=== PATIENT | male | born 1940 | race Caucasian/White ===

== ENCOUNTER 2018-11-30 12:59 | Inpatient (IN) ==
[2018-11-30] MEDS ORDERED: Acetaminophen 325 MG TABLET PO PRN (16:16)
[2018-11-30] MEDS ORDERED: Naloxone 0.4 MG/ML INJ IVP PRN (16:16)
[2018-11-30] MEDS ORDERED: Ipratropium/Albuterol Neb 3 ML IH PRN (16:24)
[2018-11-30] MEDS ORDERED: *HR* Dextrose 50 % in Water (Syg) 50 ML SYRINGE IVP PRN (16:26)
[2018-11-30] MEDS ORDERED: Dextrose Gel 15 GM/37.5 ML TUBE PO PRN ×2 (16:26)
[2018-11-30] MEDS ORDERED: D5% in Water 1,000 ML IVC PRN (16:26)
--- NOTE | 2018-11-30 16:35 | Internal Med History&Physical ---
Date of Encounter: 11/30/18 Time of Encounter: 15:45 Internal Medicine - H&P: HPI Chief complaint: Shortness of breath Admitted From: Home Plans for Post Hospital Care: Home History of present illness: Mr. Dunbar is a 78 year old male presented to [facility] the emergency room for worsening shortness of breath. Past medical history is significant for COPD, diabetes on diet control only, hypertension, chronic constipation due to anal stenosis. Patient has runny nose for several days. Since 2 days ago, he started to feel shortness of breath and leg swelling. Patient denies cough, sore throat, fever, chills. Since this morning, patient feels shortness of breath getting worse, with exertional intolerance. Patient has to stop 2-3 times even when he goes to bathroom, to catch his breath. Patient denies chest pain, nausea, vomiting, or diaphoresis. In the emergency room, chest x-ray shows pulmonary vascular congestion. Patient has elevated BNP over 300. CTA has been done, negative for PE but suggested pulmonary edema. Patient also was found A. fib with a heart rate 75. Patient has no history of A. fib previously. Patient was treated with Lasix IV, DuoNeb, IV steroid. He was given Lovenox 70mg once for A. fib. Patient was transferred to our hospital for further management. Past Med Surg Social Fam HX - Past Medical History Medical history: asthma, cancer, COPD, diabetes, GERD, hyperlipidemia, hypertension, other Additional medical history: melanoma Psychiatric history: no psych history - Past Surgical History Surgical History: other Additional surgical history: Neck - Social History Smoking Status: Former smoker Smokeless Tobacco Status: No Alcohol use: none Drug use: none - Family History Mother History Unknown: Yes Internal Medicine - H&P: Meds Albuterol Sulfate [Albuterol Inhaler] 2 puff IH Q4H 08/30/15 [History] Gabapentin [Neurontin] 300 mg PO TID 08/30/15 [History] Ipratropium [Atrovent Inhaler] 2 puff IH QID 08/30/15 [History] Metoprolol [Lopressor] 50 mg PO DAILY 08/30/15 [History] Polyethylene Glycol 3350 [MiraLAX] 17 gm PO DAILY 08/30/15 [History] Saline Nasal [place] [[place] Nasal [place]] 44 spray NS HS 08/30/15 [History] Simvastatin [Zocor] 40 mg PO HS 08/30/15 [History] Aspirin [Lo-Dose Aspirin EC] 81 mg PO DAILY 11/30/18 [History] Fluticasone Propionate [Flovent Hfa] 1 puff IH BID 11/30/18 [History] Losartan Potassium 25 mg PO DAILY 11/30/18 [History] Mag Hydrox/Al Hydrox/Simeth [Maalox] 15 ml PO Q6HR PRN 11/30/18 [History] Omeprazole [PriLOSEC] 40 mg PO DAILY 11/30/18 [History] Allergy/AdvReac Type Severity Reaction Status Date / Time Amoxicillin AdvReac Headache Verified 11/30/18 16:04 lisinopril AdvReac See Verified 11/30/18 16:04 Comments All Systems PM: A 10-system review of systems was performed and is negative for pertinent findings except as documented above in the HPI. - Constitutional Vitals: Temp Pulse Resp BP Pulse Ox 97.9 F 79 18 163/80 94 11/30/18 16:00 11/30/18 16:00 11/30/18 16:00 11/30/18 16:00 11/30/18 16:00 Exam: Pt is AAO x 3, in NAD, pleasant HEENT: NC/AT, PERRL Neck: Supple, no JVD, no LAD Lungs: CTA b/l, trace wheezing on left side Heart: S1S2, irregularly irregular Abd: Soft, nontender, BS present Ext: ROM wnl, mild pitting pedal edema bilaterally Neuro: No focal deficit - Assessment and Plan (1) Diabetes mellitus Current Visit: Yes Status: Acute Assessment and plan: Patient has diabetes on diet control only. Said hemoglobin A1c 6.0. However, patient was placed on steroid, will place patient on sliding scale insulin coverage when he is in hospital. 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 Diabetes mellitus complication status: without complication Qualified Code(s): E11.9 - Type 2 diabetes mellitus without complications (2) Hypertension Current Visit: Yes Status: Acute Assessment and plan: Continue home medication losartan and metoprolol Qualifiers: Hypertension type: essential hypertension Qualified Code(s): I10 - Essential (primary) hypertension (3) DVT prophylaxis Current Visit: Yes Status: Acute Assessment and plan: Patient is on therapeutic dose of Lovenox (4) Acute exacerbation of chronic obstructive airways disease Current Visit: No Status: Acute Assessment and plan: Patient has some runny nose and worsening shortness of breath. History of COPD. Consider COPD exacerbation. Patient has good air movement and only trace wheezing when I saw him. - Respiratory virus panel - By mouth prednisone, DuoNeb scheduled and when necessary - Continue supportive treatment with oxygen, continue pulse oximetry monitoring (5) Atrial fibrillation with normal ventricular rate Current Visit: No Status: Acute Assessment and plan: New onset A. fib. Heart rate is controlled. - Place pt on continuous cardiac monitoring - Echo, TSH, magnesium - Lovenox 70mg sc bid for anticoagulations at this point - Consult cardiology for further management (6) Congestive heart failure Current Visit: No Status: Acute Assessment and plan: Patient has bilateral leg swelling, increased shortness of breath and exertional intolerance, elevated BNP, chest x-ray and CT shows pulmonary edema. Consider CHF. Patient denies history of CHF. - Place patient on fluid restriction diet - Strict I and no - Lasix IV 40 mg daily. One dose has been given by ER today. - Echocardiogram - Cardiology consult. Qualifiers: Heart failure type: unspecified Heart failure chronicity: acute Qualified Code(s): I50.9 - Heart failure, unspecified - Time Spent With Patient Total time spent is greater than 50% in coordination of care (as documented) at patient's floor/unit and/or counseling patient: 40 minutes Greater than 35 minutes
[2018-11-30] MEDS: Insulin LISPRO 300 UNITS/3 ML VIAL SQ SCH ×2 (18:28→20:58)
[2018-11-30 20:13] LABS: Adenovirus Not Detected (Not Detect); Bordetella Pertussis Not Detected (Not Detect); Chlamydophila pneumoniae Not Detected (Not Detect); Coronavirus 229E Not Detected (Not Detect); Coronavirus HKU1 Not Detected (Not Detect); Coronavirus NL63 Not Detected (Not Detect); Coronavirus OC43 Not Detected (Not Detect); Human Metapneumovirus Not Detected (Not Detect); Human Rhinovirus/Enterovirus Not Detected (Not Detect); Influenza A Subtype 2009 H1 Not Detected (Not Detect); Influenza A Untypeable Not Detected (Not Detect); Influenza B Not Detected (Not Detect); Mycoplasma pneumoniae Not Detected (Not Detect); Parainfluenza Virus 1 Not Detected (Not Detect); Parainfluenza Virus 2 Not Detected (Not Detect); Parainfluenza Virus 3 Not Detected (Not Detect); Parainfluenza Virus 4 Not Detected (Not Detect); Respiratory Syncytial Virus Not Detected (Not Detect)
[2018-11-30] MEDS: Saline Nasal Spray 44 ML BOTTLE NS SCH (20:51)
[2018-11-30] MEDS: Gabapentin 300 MG CAPSULE PO SCH (20:53)
[2018-11-30] MEDS: MOMETASONE FUROATE 100 mcg Inhaler IH SCH (21:41)
[2018-11-30] MEDS: Ipratropium/Albuterol Neb 3 ML IH SCH (21:41)
[2018-12-01 02:42] LABS: Hematocrit 36.5 % (37.5-50.1); Hemoglobin 11.8 g/dL (12.9-16.9); Immature Granulocytes % 0.5 % (0-4); Lymphocytes # 0.4 K/mcL (0.6-4.6); Lymphocytes % 8.7 %; Mean Corpuscular HGB Conc 32.3 g/dL (31.6-35.5); Mean Corpuscular Hemoglobin 28.6 pg (28.0-33.3); Mean Corpuscular Volume 88.6 fL (83.0-100.0); Mean Platelet Volume 10.5 fL (9.4-12.4); Monocytes # 0.1 K/mcL (0.0-1.3); Monocytes % 3.2 %; Neutrophils # 3.6 K/mcL (1.6-8.9); Platelet Count 125 K/mcL (140-400); Red Blood Count 4.12 M/mcL (4.19-5.50); Red Cell Distribution Width 14.5 % (11.5-14.5); Segmented Neutrophils % 87.6 %
[2018-12-01 02:57] LABS: BUN/Creatinine Ratio 19 (6-26); Blood Urea Nitrogen 20 mg/dL (8-23); Calcium 9.2 mg/dL (8.6-10.3); Carbon Dioxide 27 mEq/L (23-29); Chloride 101 mEq/L (98-107); Glucose 143 mg/dL (70-105); Magnesium 2.3 mg/dL (1.6-2.6); Osmolality,Calculated 283 (280-300); Potassium 4.3 mEq/L (3.5-5.1); Sodium 134 mEq/L (136-145); eGFR For Non-African Americans > 60 (> 60)
[2018-12-01] MEDS: Ipratropium/Albuterol Neb 3 ML IH SCH ×4 (03:40→21:39)
[2018-12-01] MEDS ORDERED: *HR* Enoxaparin 80 MG/0.8 ML SYRINGE SQ SCH (06:00)
[2018-12-01] MEDS: Aspirin Enteric Coated 81 MG Tablet PO SCH (10:11)
[2018-12-01] MEDS: Gabapentin 300 MG CAPSULE PO SCH ×3 (10:11→20:59)
[2018-12-01] MEDS: Furosemide 40 MG/4 ML VIAL IVP SCH (10:11)
[2018-12-01] MEDS: predniSONE 20 MG TABLET PO SCH (10:11)
[2018-12-01] MEDS: Insulin LISPRO 300 UNITS/3 ML VIAL SQ SCH ×4 (10:12→20:50)
[2018-12-01] MEDS: MOMETASONE FUROATE 100 mcg Inhaler IH SCH ×2 (10:27→21:39)
--- NOTE | 2018-12-01 10:31 | Internal Med Progress Note ---
Hospitalist Progress Note - Encounter Date of Encounter: 12/01/18 Time of Encounter: 10:29 - Subjective Interval History: Pt seen and examined in the room. reported improved sob and leg swelling. No chest pain, wheezing , cough, or palpitation. - Exam Vitals: Temp Pulse Resp BP Pulse Ox 97.5 F L 78 16 122/76 65 12/01/18 02:31 12/01/18 02:31 12/01/18 03:40 12/01/18 02:31 12/01/18 03:40 Exam: Pt is AAO x 3, in NAD, pleasant HEENT: NC/AT, PERRL Neck: Supple, no JVD, no LAD Lungs: CTA b/l, trace wheezing on left side Heart: S1S2, irregularly irregular Abd: Soft, nontender, BS present Ext: ROM wnl, mild pitting trace pedal edema bilaterally Neuro: No focal deficit - Assessment and Plan (1) Congestive heart failure Current Visit: No Status: Acute Assessment and Plan: 11/30 Patient has bilateral leg swelling, increased shortness of breath and exertional intolerance, elevated BNP, chest x-ray and CT shows pulmonary edema. Consider CHF. Patient denies history of CHF. - Place patient on fluid restriction diet - Strict I and no - Lasix IV 40 mg daily. One dose has been given by ER today. - Echocardiogram - Cardiology consult. 12/01 ECHO showed normal EF, indeterminate diastolic function, mod , MR, TR, and Pulm HTN, bi-atrial enlargement. New onset of afib, may contribute to newly developed CHF. BP controlled with ARB and BB. Volume status improved with IV lasix. Cardiology following. (2) Acute exacerbation of chronic obstructive airways disease Current Visit: Yes Status: Acute Assessment and Plan: 11/30 Patient has some runny nose and worsening shortness of breath. History of COPD. Consider COPD exacerbation. Patient has good air movement and only trace wheezing when I saw him. - Respiratory virus panel - By mouth prednisone, DuoNeb scheduled and when necessary - Continue supportive treatment with oxygen, continue pulse oximetry monitoring. 12/01 Stable, continue current treatment with oral steroid and bronchodilator. (3) Atrial fibrillation with normal ventricular rate Current Visit: Yes Status: Acute Assessment and Plan: 11/30 New onset A. fib. Heart rate is controlled. - Place pt on continuous cardiac monitoring - Echo, TSH, magnesium - Lovenox 70mg sc bid for anticoagulations at this point - Consult cardiology for further management. 12/01 Normal TSH and electrolyte. mod , MR and TR. CHADS score 5, AC indicated, currently on Lovenox, will start on AC. Cardiology following. (4) Diabetes mellitus Current Visit: Yes Status: Acute Assessment and Plan: Patient has diabetes on diet control only. Said hemoglobin A1c 6.0. However, patient was placed on steroid, will place patient on sliding scale insulin coverage when he is in hospital. Keep diabetic diet (5) Hypertension Current Visit: Yes Status: Acute Assessment and Plan: Continue home medication losartan and metoprolol (6) DVT prophylaxis Current Visit: Yes Status: Acute Assessment and Plan: Patient is on therapeutic dose of Lovenox - Time Spent with Patient Total time spent is greater than 50% in coordination of care (as documented) at patient's floor/unit and/or counseling patient: Greater than 35 minutes Plan of Care Discussed with: patient Internal Medicine: Result - Labs CBC & Chem 7: 12/01/18 01:55 12/01/18 01:55 Labs: Short CBC 12/01/18 Range/Units 01:55 WBC 4.1 L (4.3-11.1) K/mcL Hgb 11.8 L (12.9-16.9) g/dL Hct 36.5 L (37.5-50.1) % Plt Count 125 L (140-400) K/mcL Neutrophils # 3.6 (1.6-8.9) K/mcL BMP 12/01/18 01:55 Sodium 134 L Potassium 4.3 Chloride 101 Carbon Dioxide 27 BUN 20 Creatinine 1.07 Glucose 143 H Calcium 9.2 Cardiac Enzymes 11/30/18 12/01/18 Range/Units 19:31 01:55 Troponin I < 0.03 < 0.03 (< 0.04) ng/mL - Impressions Impressions Echocardiogram 12/01/18 16:22 Impressions: LVEF 60%. Indeterminate diastolic function. Right ventricle is mildly dilated with normal systolic function. Bi-atrial enlargement. Moderately sclerotic aortic valve leaflets. Moderate mitral regurgitation. Moderate tricuspid regurgitation. Moderate pulmonary hypertension. Left Ventricular Wall Motion: Rest Echo Findings All wall segments showed normal motion. Findings: Study Quality * Technically adequate exam. ECG Findings * Atrial fibrillation. Left Ventricle * LVEF 60%. * Normal LV chamber size, wall thickness and function. * Indeterminate diastolic function. Right Ventricle * Right ventricle is mildly dilated with normal systolic function. Left Atrium * Moderately dilated left atrium. Right Atrium * Moderately dilated right atrium. Aortic Valve * Trileaflet aortic valve. * Moderately sclerotic aortic valve leaflets. * No aortic stenosis. * Trace aortic regurgitation. Mitral Valve * Mildly thickened mitral valve leaflets. * No mitral stenosis. * Moderate mitral regurgitation. Tricuspid Valve * Normal tricuspid valve structure. * Moderate tricuspid regurgitation. * Estimated RA pressure is 20 mmHg. * Estimated RVSP is 58 mmHg. * Moderate pulmonary hypertension. Pulmonic Valve * Pulmonic valve is not well visualized. * No pulmonic stenosis. * No pulmonic regurgitation. Pulmonary Artery * Pulmonary artery not well visualized. Aorta * Normally sized aortic root. Pericardium * There is no pericardial effusion present. Interatrial Septum * No evidence of PFO by color Doppler. IVC * The IVC is dilated. * < 50% respiratory change. Consult Discharge Plan - Plan Referrals: Rebekah Shah MD [Primary Care Provider] - 12/05/18 1:30 pm (Appointment has been requested.) (1) Congestive heart failure Qualifiers: Heart failure type: diastolic Heart failure chronicity: acute Qualified Code(s): I50.31 - Acute diastolic (congestive) heart failure (4) Diabetes mellitus Qualifiers: Diabetes mellitus type: type 2 Diabetes mellitus penitentiary insulin use: without penitentiary use Diabetes mellitus complication status: without complication Qualified Code(s): E11.9 - Type 2 diabetes mellitus without complications (5) Hypertension Qualifiers: Hypertension type: essential hypertension Qualified Code(s): I10 - Essential (primary) hypertension
--- NOTE | 2018-12-01 14:45 | Cardiology Consult Note ---
<Tere Don - Last Filed: 12/01/18 15:13> Date of Encounter: 12/01/18 Time of Encounter: 11:00 Assessment and Plan (1) Congestive heart failure Current Visit: Yes Status: Acute Presents with increasing shortness of breath at rest and exertion Troponin < 0.03 x 3 BNP mildly elevated at 327 CXR: mild pulmonary vascular congestion CTA chest: No PE, interstitial edema and small bilateral pleural effusions. ECHO: LVEF 60%, indeterminate diastolic function, RV mildly dilated with normal systolic function, bi-atrial enlargement, moderately sclerotic aortic valve leaflets, moderate mitral regurgitation, moderate tricuspid regurgitation, moderate pulmonary hypertension Continue HTN control, aspirin, statin Lasix 20 mg qd for diuresis Advise to take lasix 20 mg PRN for 2-3 days at home if weight gain of 3-5 lbs, consider potassium replacement Cardiology to sign off, please reconsult as needed. All questions and concerns addressed. Follow up has been arranged. Qualifiers: Heart failure type: diastolic Heart failure chronicity: acute Qualified Code(s): I50.31 - Acute diastolic (congestive) heart failure (2) Atrial fibrillation with normal ventricular rate Current Visit: Yes Status: Acute Suspect new onset vs paroxysmal atrial fibrillation Rate controlled, most likely secondary to metoprolol use for HTN EKG: Atrial fibrillation, HR 75, right axis, possible old anteroseptal infarct, QRS 88, QT 362, QTc 405, no ST segment elevation or depression, no signs of ischemia TSH, mg WNL CHADSVASC score 5 Will continue metoprolol for rate control Discussed eliquis cost with pharmacy and within budget Will start eliquis 2.5 mg BID based on age of 78 and creatinine clearance of 53 Discontinue lovenox (3) Hypertension Current Visit: Yes Status: Acute Controlled Continue home medications losartan and metoprolol Qualifiers: Hypertension type: essential hypertension Qualified Code(s): I10 - Essential (primary) hypertension (4) COPD (chronic obstructive pulmonary disease) Current Visit: Yes Status: Acute HIstory of COPD Continue duoneb, steroid and respiratory support as needed Qualifiers: COPD type: chronic bronchitis Chronic bronchitis type: unspecified Qualified Code(s): J42 - Unspecified chronic bronchitis (5) Diabetes mellitus Current Visit: Yes Status: Acute History of diet controlled DM Low dose sliding scale during steroid treatment Qualifiers: Diabetes mellitus type: type 2 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 All questions were answered. Thank you for involving us in the care of your patient. Please call with any questions. History of Present Illness Consult date: 12/01/18 Consult reason: Afib and CHF Chief complaint: Shortness of breath History of present illness: Mr. Dunbar is a 78 year old male who presented with complaint of shortness of breath. PMH: COPD, diet controlled DM, HTN, HLD, anal stenosis causing constipation, and GERD. He states that he has had episodes of shortness of breath as well as decreased exercise tolerance for past several months however it increased in severity over past 3-4 days. He also states that he had increased LE edema for past several days as well as intermittent palpitations for past several months as well. He States that he is unable to walk further than several steps without becoming short of breath. He also admits to chronic a bdominal distension and bloating secondary to anal stenosis which is unchanged. He denies fever, chills, lightheadedness, falls, chest pain, pleuritic pain, cough, diarrhea, melena, hematochezia, dysuria, hematuria, calf pain or syncope Past Med Surg Social Fam HX - Past Medical History Medical history: asthma, cancer, COPD, diabetes, GERD, hyperlipidemia, hypertension, other Additional medical history: melanoma Psychiatric history: no psych history - Past Surgical History Surgical History: other Additional surgical history: Neck - Social History Smoking Status: Former smoker Smokeless Tobacco Status: No Alcohol use: none Drug use: none - Family History Mother History Unknown: Yes Medications and Allergies Albuterol Sulfate [Albuterol Inhaler] 2 puff IH Q4H 08/30/15 [History] Gabapentin [Neurontin] 300 mg PO TID 08/30/15 [History] Ipratropium [Atrovent Inhaler] 2 puff IH QID 08/30/15 [History] Metoprolol [Lopressor] 50 mg PO DAILY 08/30/15 [History] Polyethylene Glycol 3350 [MiraLAX] 17 gm PO DAILY 08/30/15 [History] Saline Nasal [place] [[place] Nasal [place]] 44 spray NS HS 08/30/15 [History] Simvastatin [Zocor] 40 mg PO HS 08/30/15 [History] Aspirin [Lo-Dose Aspirin EC] 81 mg PO DAILY 11/30/18 [History] Fluticasone Propionate [Flovent Hfa] 1 puff IH BID 11/30/18 [History] Losartan Potassium 25 mg PO DAILY 11/30/18 [History] Mag Hydrox/Al Hydrox/Simeth [Maalox] 15 ml PO Q6HR PRN 11/30/18 [History] Omeprazole [PriLOSEC] 40 mg PO DAILY 11/30/18 [History] Allergy/AdvReac Type Severity Reaction Status Date / Time Amoxicillin AdvReac Headache Verified 11/30/18 16:04 lisinopril AdvReac See Verified 11/30/18 16:04 Comments All Systems Review: The remainder of the systems were reviewed and are negative - Constitutional Constitutional: no chills, no fever(s), no frequent falls, no lethargy, no weakness - EENT Eyes: no blurred vision Nose, mouth and throat: no dysphagia - Cardiovascular Cardiovascular: dyspnea on exertion, leg edema, palpitations, no chest pain at rest, no chest pain with exertion, no diaphoresis, no dyspnea at rest, no irregular heart rhythm, no radiating jaw, neck or arm pain, no lightheadedness, no orthopnea, no paroxysmal nocturnal dyspnea, no syncope - Respiratory Respiratory: dyspnea, no cough - Gastrointestinal Gastrointestinal: abdominal pain, constipation, no diarrhea, no hematochezia, no melena - Genitourinary Genitourinary: no dysuria, no hematuria - Musculoskeletal Musculoskeletal: no arthralgias, no myalgias - Integumentary Integumentary: no erythema, no rash - Neurological Neurological: no dizziness, no focal weakness, no numbness, no syncope, no tingling - Psychiatric Psychiatric: no anxiety, no depression - Hematological/Lymphatic Hematologic/Lymphatic: no easy bleeding, no easy bruising Physical Examination Vital Signs, Last 4 Hours Temp Pulse Resp BP Pulse Ox 12/01/18 11:42 97.3 F L 77 16 137/55 97 General: Conversant, No Apparent Distress HEENT: Atraumatic, Normocephaly, Mucus Membranes Moist Neck: No JVD, Normal carotid pulses Cardiac: Normal S1 and S2, No Murmur, Other (Irregular rate and rhythm) Lungs: Other (Mild crackles bilaterally) Neuro: Alert and responsive, No focal deficits noted Abdomen: Soft, Non-Tender Skin: No rashes noted on visualized skin Musculoskeletal: No Chest Wall Tenderness Extremities: No Clubbing, No Cyanosis, Other (1+ edema of LE bilaterally) Results 12/01/18 01:55 12/01/18 01:55 Lab Results 11/30/18 12/01/18 12/01/18 19:31 01:55 01:55 WBC 4.1 L Hgb 11.8 L Hct 36.5 L Plt Count 125 L Sodium Potassium Chloride Carbon Dioxide BUN Creatinine Glucose Calcium Magnesium Troponin I < 0.03 < 0.03 TSH 12/01/18 12/01/18 01:55 01:55 WBC Hgb Hct Plt Count Sodium 134 L Potassium 4.3 Chloride 101 Carbon Dioxide 27 BUN 20 Creatinine 1.07 Glucose 143 H Calcium 9.2 Magnesium 2.3 Troponin I TSH 0.739 Consult Discharge Plan - Plan Referrals: Rebekah Shah MD [Primary Care Provider] - 12/05/18 1:30 pm (Appointment has been requested.) <Lyric Cardenas - Last Filed: 12/01/18 17:41> Date of Encounter: 12/01/18 - Attending Attestation Patient was seen and evaluated independently by me. Findings, assessment and plan were discussed at length with patient, questions answered. Agree with nurse practitioner's/resident's documentation. Addition as follows, 78 yoCM ho DM, HTN, HLD, COPD. P/w months of DALEY, worsening 4 days with palpitations w/o syncope or chest pain. Consulted for Afib on ECG . ECG in SR now Afib VR <100, RAD, possible prior septal MS. TTE EF 60%, bi-atrial dilatation with mod MR/TR, moderate pul PH. Neg trop, mild elevated BNP. VSS, euvoemia on exam. A: ADHF, HFpEF, mild fluid overload Afib, unclear chronicity, likely chroic, rate control ok, C score 4 Moderate MR/TR, likely secondary Moderate pulmonary hypertension P: lasix with KCL prn for wt gain 3 lbs c/w lopressor for rate ctr eliquis if recurrent ADHF, need to consider rhythm control cardiology clinic f/u Lyric Cardenas MD, PhD Assessment and Plan Discussion w patient/family: The assessment and plan as outlined above was discussed with the patient and/or family members who expressed understanding and agreement. All questions were answered. Thank you for involving us in the care of your patient. Please call with any questions. History of Present Illness History of present illness: Mr. Dunbar is a 78 year old male All Systems Review: The remainder of the systems were reviewed and are negative Physical Examination Vital Signs, Last 4 Hours Temp Pulse Resp BP Pulse Ox 12/01/18 16:42 98.0 F 86 16 135/68 94 Results 12/01/18 01:55 12/01/18 01:55 Lab Results 11/30/18 12/01/18 12/01/18 19:31 01:55 01:55 WBC 4.1 L Hgb 11.8 L Hct 36.5 L Plt Count 125 L Sodium Potassium Chloride Carbon Dioxide BUN Creatinine Glucose Calcium Magnesium Troponin I < 0.03 < 0.03 TSH 12/01/18 12/01/18 01:55 01:55 WBC Hgb Hct Plt Count Sodium 134 L Potassium 4.3 Chloride 101 Carbon Dioxide 27 BUN 20 Creatinine 1.07 Glucose 143 H Calcium 9.2 Magnesium 2.3 Troponin I TSH 0.739
[2018-12-01] MEDS: Saline Nasal Spray 44 ML BOTTLE NS SCH (20:58)
[2018-12-01] MEDS: Apixaban 5 MG TABLET PO SCH (20:59)
[2018-12-02 03:21] LABS: Hematocrit 34.3 % (37.5-50.1); Hemoglobin 11.2 g/dL (12.9-16.9); Immature Granulocytes % 0.5 % (0-4); Lymphocytes # 0.6 K/mcL (0.6-4.6); Lymphocytes % 8.4 %; Mean Corpuscular HGB Conc 32.7 g/dL (31.6-35.5); Mean Corpuscular Hemoglobin 28.6 pg (28.0-33.3); Mean Corpuscular Volume 87.5 fL (83.0-100.0); Monocytes # 0.3 K/mcL (0.0-1.3); Monocytes % 3.9 %; Neutrophils # 5.8 K/mcL (1.6-8.9); Platelet Count 128 K/mcL (140-400); Red Blood Count 3.92 M/mcL (4.19-5.50); Red Cell Distribution Width 14.6 % (11.5-14.5); Segmented Neutrophils % 87.2 %
[2018-12-02 03:39] LABS: BUN/Creatinine Ratio 25 (6-26); Blood Urea Nitrogen 26 mg/dL (8-23); Carbon Dioxide 27 mEq/L (23-29); Chloride 100 mEq/L (98-107); Glucose 147 mg/dL (70-105); Osmolality,Calculated 285 (280-300); Potassium 4.6 mEq/L (3.5-5.1); Sodium 134 mEq/L (136-145); eGFR For Non-African Americans > 60 (> 60)
[2018-12-02] MEDS: Ipratropium/Albuterol Neb 3 ML IH SCH ×2 (04:16→10:22)
[2018-12-02 07:25] VITALS: BP 173/78
[2018-12-02] MEDS: Insulin LISPRO 300 UNITS/3 ML VIAL SQ SCH (07:30)
[2018-12-02] MEDS: Apixaban 5 MG TABLET PO SCH (08:27)
[2018-12-02] MEDS: predniSONE 20 MG TABLET PO SCH (08:28)
[2018-12-02] MEDS: Gabapentin 300 MG CAPSULE PO SCH (08:28)
[2018-12-02] MEDS: Aspirin Enteric Coated 81 MG Tablet PO SCH (08:28)
[2018-12-02] MEDS: Furosemide 40 MG/4 ML VIAL IVP SCH (08:30)
--- NOTE | 2018-12-02 09:11 | Discharge Summary ---
- NOTES TO OUTPATIENT PROVIDER Notes to Outpatient Provider: f/u with PCP within a week. f/u with cardiology within a month. Date of Encounter: 12/02/18 Time of Encounter: 09:05 - Discharge Diagnosis (1) Congestive heart failure Priority: Primary Status: Acute Qualifiers: Heart failure type: diastolic Heart failure chronicity: acute Qualified Code(s): I50.31 - Acute diastolic (congestive) heart failure (2) Acute exacerbation of chronic obstructive airways disease Priority: Primary Status: Acute (3) Atrial fibrillation with normal ventricular rate Priority: Primary Status: Acute (4) Diabetes mellitus Priority: Secondary Status: Chronic Qualifiers: Diabetes mellitus type: type 2 Diabetes mellitus mcc insulin use: without middle or intermediate school principal use Diabetes mellitus complication status: without complication Qualified Code(s): E11.9 - Type 2 diabetes mellitus without complications (5) Hypertension Priority: Secondary Status: Chronic Qualifiers: Hypertension type: essential hypertension Qualified Code(s): I10 - Essential (primary) hypertension (6) DVT prophylaxis Priority: Primary Status: Acute Hospital course: Mr. Dunbar is a 78 year old male presented to [facility] emergency room for worsening shortness of breath. Past medical history is significant for COPD, diabetes on diet control only, hypertension, chronic constipation due to anal stenosis. Since 2 days ago, he started to feel shortness of breath and leg swelling. Patient denies cough, sore throat, fever, chills. Since this morning, patient feels shortness of breath getting worse, with exertional intolerance. Patient has to stop 2-3 times even when he goes to bathroom, to catch his breath. Patient denies chest pain, nausea, vomiting, or diaphoresis. In the emergency room, chest x-ray shows pulmonary vascular congestion. Patient has elevated BNP over 300. CTA has been done, negative for PE but suggested pulmonary edema. Patient also was found A. fib with a heart rate 75. Patient has no history of A. fib previously. Patient was transferred to our hospital for further management. Serial troponin was negative, EKG has no acute ST-T change besides atrial fibrillation with controlled heart rate. An echocardiogram showed normal ejection fraction and mild LVDD, no significant valvular disease. Cardiology was consulted, low-dose Eliquis was recommended for anticoagulation, patient heart rate ordered controlled by metoprolol, which patient takes at home. While in the hospital, patient continued to receive IV Lasix, his volume overload has significantly improved and leg swelling has resolved. On the third hospital day, patient continued to do well, he denies any shortness breath or leg swelling, patient will be discharged home today, he was instructed to continue take oral Lasix and Eliquis as ordered, follow-up with PCP and cardiology as scheduled. Discharge discussed with: patient Time spent discussing smoking cessation with patient: more than 10 minutes - Time Spent with Patient Total time spent providing and/or coordinating discharge services: Time spent: Greater than 30 minutes - Discharge Medications Prescriptions: New Apixaban [Eliquis] 2.5 mg PO BID #60 tablet Furosemide [Lasix] 20 mg PO DAILY #30 tablet Continue Aspirin [Lo-Dose Aspirin EC] 81 mg PO DAILY Fluticasone Propionate [Flovent Hfa] 1 puff IH BID Omeprazole [PriLOSEC] 40 mg PO DAILY Mag Hydrox/Al Hydrox/Simeth [Maalox] 15 ml PO Q6HR PRN PRN Reason: Indigestion Simvastatin [Zocor] 40 mg PO HS Polyethylene Glycol 3350 [MiraLAX] 17 gm PO DAILY Metoprolol [Lopressor] 50 mg PO DAILY Gabapentin [Neurontin] 300 mg PO TID Saline Nasal Zwingle [[place] Nasal Zwingle] 44 spray NS HS Ipratropium [ATROVENT Inhaler] 2 puff IH QID Albuterol Sulfate [Albuterol Inhaler] 2 puff IH Q4H Losartan Potassium 25 mg PO DAILY Home Medications: Albuterol Sulfate [Albuterol Inhaler] 2 puff IH Q4H 08/30/15 [History] Gabapentin [Neurontin] 300 mg PO TID 08/30/15 [History] Ipratropium [ATROVENT Inhaler] 2 puff IH QID 08/30/15 [History] Metoprolol [Lopressor] 50 mg PO DAILY 08/30/15 [History] Polyethylene Glycol 3350 [MiraLAX] 17 gm PO DAILY 08/30/15 [History] Saline Nasal Zwingle [[place] Nasal Zwingle] 44 spray NS HS 08/30/15 [History] Simvastatin [Zocor] 40 mg PO HS 08/30/15 [History] Aspirin [Lo-Dose Aspirin EC] 81 mg PO DAILY 11/30/18 [History] Fluticasone Propionate [Flovent Hfa] 1 puff IH BID 11/30/18 [History] Losartan Potassium 25 mg PO DAILY 11/30/18 [History] Mag Hydrox/Al Hydrox/Simeth [Maalox] 15 ml PO Q6HR PRN 11/30/18 [History] Omeprazole [PriLOSEC] 40 mg PO DAILY 11/30/18 [History] Apixaban [Eliquis] 2.5 mg PO BID #60 tablet 12/02/18 [Rx] Furosemide [Lasix] 20 mg PO DAILY #30 tablet 12/02/18 [Rx] Allergies/Adverse Reactions: Allergy/AdvReac Type Severity Reaction Status Date / Time Amoxicillin AdvReac Headache Verified 11/30/18 16:04 lisinopril AdvReac See Verified 11/30/18 16:04 Comments Date of admission: 12/01/18 13:04 Primary care physician: Rebekah Shah MD Consults: 11/30/18 16:22 Consult to Cardiology [CONS] Routine Comment: Consulting Provider: [facility] Reason for Consult: New CHF, New A Fib Call Completed: No Anticipated date of discharge: 12/02/18 - Constitutional Vitals: Temp Pulse Resp BP Pulse Ox 97.4 F L 68 16 173/78 96 12/02/18 07:24 12/02/18 07:24 12/02/18 07:24 12/02/18 07:24 12/02/18 07:24 General appearance: Present: A&O X 3 Exam: Pt is AAO x 3, in NAD, pleasant HEENT: NC/AT, PERRL Neck: Supple, no JVD, no LAD Lungs: CTA b/l, trace wheezing on left side Heart: S1S2, irregularly irregular Abd: Soft, nontender, BS present Ext: ROM wnl, mild pitting trace pedal edema bilaterally Neuro: No focal deficit - Patient Status Disposition: Home, Self-Care Condition: Fair Functional capacity at discharge: independent ambulation Overall status at discharge: patient is progressing back to baseline - Discharge Instructions Follow Up With: Rebekah Shah MD [Primary Care Provider] - 12/05/18 1:30 pm (Appointment has been requested.) - Diet and Activity Activity: increase activity as tolerated Diet: advance to your usual diet
[2018-12-02] MEDS: MOMETASONE FUROATE 100 mcg Inhaler IH SCH (10:22)
== END 2018-12-02 10:45 | disposition home or self-care (01) | DRG 291 ==
LOC: 3BNU
PROVIDERS: ADMIT Internal Medicine; ATTEND Internal Medicine